=== PATIENT | female | born 1995 | race Caucasian/White ===

== ENCOUNTER 2016-05-25 17:51 | Emergency (ER) | payer SELFPAY ==
[2016-05-25 18:00] VITALS: BP 106/59
--- NOTE | 2016-05-25 18:21 | ER Document Report ---
ED Medical Screen (RME) - General Chief Complaint: Abdominal Pain Stated Complaint: ABDOMINAL PAIN Time seen by provider: 18:19 Mode of Arrival: Ambulatory Information source: Patient Notes: 21-year-old female presents to ED for nausea and vomiting with abdominal pain this morning states she stayed home today and has been relaxing today and now she no longer has abdominal pain or any nausea or vomiting. Patient states she has to have a work note and order to go back to work tomorrow. Last menstrual period May 17 to the . TRAVEL OUTSIDE OF THE [place] IN LAST 30 DAYS: No - Related Data Allergies/Adverse Reactions: No Known Allergies Allergy (Unverified 10/30/15 05:01) Physical Exam - Vital signs Vitals: Temp Pulse Resp BP Pulse Ox 97.9 F 76 16 106/59 L 97 05/25/16 17:58 05/25/16 17:58 05/25/16 17:58 05/25/16 17:58 05/25/16 17:58 Course - Vital Signs Vital signs: Temp Pulse Resp BP Pulse Ox 97.9 F 76 16 106/59 L 97 05/25/16 17:58 05/25/16 17:58 05/25/16 17:58 05/25/16 17:58 05/25/16 17:58
--- NOTE | 2016-05-25 19:41 | ER Document Report ---
ED GI/ - General Chief Complaint: Abdominal Pain Stated Complaint: ABDOMINAL PAIN Mode of Arrival: Ambulatory Information source: Patient Notes: Patient is a 21-year-old female who presents to the ER today for abdominal pain and one episode of vomiting today. Patient states that she is not having these issues any longer and she does not even want to talk about it, that she is just here for a work note. She refuses lab work and would just like to go home now that she feels 100% better. TRAVEL OUTSIDE OF THE [place] IN LAST 30 DAYS: No - Related Data Allergies/Adverse Reactions: No Known Allergies Allergy (Verified 05/25/16 18:21) Past Medical History - General Information source: Patient - Social History Smoking Status: Never Smoker Chew tobacco use (# tins/day): No Frequency of alcohol use: None Drug Abuse: None Family History: Reviewed & Not Pertinent Patient has suicidal ideation: No Patient has homicidal ideation: No Renal/ Medical History: Denies: Hx Peritoneal Dialysis Review of Systems - Review of Systems Constitutional: No symptoms reported EENT: No symptoms reported Cardiovascular: No symptoms reported Respiratory: No symptoms reported Gastrointestinal: See HPI Genitourinary: No symptoms reported Female Genitourinary: No symptoms reported Musculoskeletal: No symptoms reported Skin: No symptoms reported Hematologic/Lymphatic: No symptoms reported Neurological/Psychological: No symptoms reported Physical Exam - Vital signs Vitals: Temp Pulse Resp BP Pulse Ox 97.9 F 76 16 106/59 L 97 05/25/16 17:58 05/25/16 17:58 05/25/16 17:58 05/25/16 17:58 05/25/16 17:58 - Notes Notes: PHYSICAL EXAMINATION: GENERAL: Well-appearing and in no acute distress. HEAD: Atraumatic, normocephalic. EYES: Pupils equal round and reactive to light, extraocular movements intact, sclera anicteric, conjunctiva are normal. NECK: Normal range of motion, supple without lymphadenopathy LUNGS: CTAB and equal. No wheezes rales or rhonchi. HEART: Regular rate and rhythm without murmurs ABDOMEN: Soft, no tenderness. No guarding, no rebound Course - Vital Signs Vital signs: Temp Pulse Resp BP Pulse Ox 97.9 F 76 16 106/59 L 97 05/25/16 17:58 05/25/16 17:58 05/25/16 17:58 05/25/16 17:58 05/25/16 17:58 Discharge - Discharge Clinical Impression: Abdominal pain Qualifiers: Abdominal location: generalized Qualified Code(s): R10.84 - Generalized abdominal pain Nausea and vomiting Qualifiers: Vomiting type: unspecified Vomiting Intractability: non-intractable Qualified Code(s): R11.2 - Nausea with vomiting, unspecified Condition: Stable Disposition: HOME, SELF-CARE Instructions: Abdominal Pain ([facility]), Vomiting ([facility]) Additional Instructions: Return immediately for any new or worsening symptoms. Follow up with primary care provider, call tomorrow to make followup appointment. Forms: Return to Work
== END 2016-05-25 19:56 | disposition home or self-care (01) ==
LOC: ER 17:51
DX: R10.84 Generalized abdominal pain (principal); R11.2 Nausea with vomiting, unspecified
CPT/HCPCS: 99283

== ENCOUNTER 2016-06-08 05:56 | Emergency (ER) | payer SELFPAY ==
[2016-06-08] MEDS ORDERED: PREDNISONE 20 MG TABLET PO ONE (07:36)
[2016-06-08] MEDS ORDERED: ACETAMINOPHEN 325 MG TABLET PO ONE (07:37)
[2016-06-08] MEDS ORDERED: HYDROCODONE/ACETAMINOPHEN 5-325 MG TABLET PO ONE (07:37)
--- NOTE | 2016-06-08 07:37 | ER Document Report ---
ED Pediatric Illness - General Mode of Arrival: Ambulatory Information source: Patient TRAVEL OUTSIDE OF THE [place] IN LAST 30 DAYS: No - HPI Onset: Other - see narrative Onset/Duration: Persistent Quality of pain: Achy Associated symptoms: Other - see narrative <KARLA OMALLEY - Last Filed: 06/08/16 07:42> <HAMLET SAHU - Last Filed: 06/08/16 08:41> - General Chief Complaint: Sore Throat Stated Complaint: SORE THROAT Notes: Patient is a 21-year-old female that presents to the emergency department today with complaints of flu-like symptoms including nasal congestion, nonproductive cough, sore throat, and fevers. Patient states she did not receive a flu shot this year. Patient states her last menstrual period was on 05/27/2016. Patient 's friend at bedside had similar symptoms prior to the patient developing these symptoms. Patient denies vomiting. (KARLA OMALLEY) - Related Data Allergies/Adverse Reactions: No Known Allergies Allergy (Verified 05/25/16 18:21) Past Medical History - General Information source: Patient - Social History Smoking Status: Never Smoker Cigarette use (# per day): No Chew tobacco use (# tins/day): No Smoking Education Provided: No Frequency of alcohol use: Rare Drug Abuse: None Lives with: Friend Family History: Reviewed & Not Pertinent Patient has suicidal ideation: No Patient has homicidal ideation: No - Medical History Medical History: Negative Renal/ Medical History: Denies: Hx Peritoneal Dialysis Surgical Hx: Negative - Immunizations Hx Diphtheria, Pertussis, Tetanus Vaccination: Yes <KARLA OMALLEY - Last Filed: 06/08/16 07:42> - General Information source: Patient - Social History Smoking Status: Never Smoker Cigarette use (# per day): No Chew tobacco use (# tins/day): No Smoking Education Provided: No Frequency of alcohol use: Rare Lives with: Friend - Medical History Medical History: Negative <HAMLET SAHU - Last Filed: 06/08/16 08:41> Review of Systems - Review of Systems Constitutional: Chills, Fever, Malaise EENT: Nose congestion, Nose discharge, Sinus pressure, Throat pain, Difficulty swallowing Cardiovascular: No symptoms reported Respiratory: Cough. denies: Short of breath, Sputum, Wheezing Gastrointestinal: No symptoms reported Genitourinary: No symptoms reported Female Genitourinary: See HPI Musculoskeletal: No symptoms reported Skin: No symptoms reported Hematologic/Lymphatic: No symptoms reported Neurological/Psychological: No symptoms reported -: Yes All other systems reviewed and negative <KARLA OMALLEY - Last Filed: 06/08/16 07:42> - Review of Systems Constitutional: Chills, Fever, Malaise EENT: Nose congestion, Nose discharge, Sinus pressure, Throat pain, Difficulty swallowing Cardiovascular: No symptoms reported Respiratory: Cough. denies: Short of breath, Sputum, Wheezing Gastrointestinal: No symptoms reported Genitourinary: No symptoms reported Female Genitourinary: See HPI - 05-27-16 Musculoskeletal: No symptoms reported Skin: No symptoms reported Hematologic/Lymphatic: No symptoms reported Neurological/Psychological: No symptoms reported <HAMLET SAHU - Last Filed: 06/08/16 08:41> Physical Exam - General General appearance: Alert In distress: Mild - HEENT Head: Normocephalic, Atraumatic Eyes: Normal Pupils: PERRL Ears: Normal External canal: Normal Tympanic membrane: Retracted. No: Injected Sinus: Other - Some nasal and sinus congestion Pharynx: Erythema. No: Exudate, Tonsillar hypertrophy, Uvular edema - Respiratory Respiratory status: No respiratory distress Breath sounds: Nonproductive cough, Rhonchi. No: Wheezing - Cardiovascular Rhythm: Regular Heart sounds: Normal auscultation Murmur: No - Abdominal Inspection: Normal - Back Back: Normal - Extremities General upper extremity: Normal inspection General lower extremity: Normal inspection - Neurological Neuro grossly intact: Yes - Psychological Associated symptoms: Normal affect, Normal mood - Skin Skin Temperature: Warm Skin Moisture: Dry Skin Color: Normal <HAMLET SAHU - Last Filed: 06/08/16 08:41> - Vital signs Vitals: Temp Pulse Resp BP Pulse Ox 98.6 F 117 H 16 104/67 97 06/08/16 05:59 06/08/16 05:59 06/08/16 05:59 06/08/16 05:59 06/08/16 05:59 (KARLA OMALLEY) (HAMLET SAHU) Discharge <KARLA OMALLEY - Last Filed: 06/08/16 07:42> <HAMLET SAHU - Last Filed: 06/08/16 08:41> - Discharge Clinical Impression: Influenza A Condition: Stable Disposition: HOME, SELF-CARE Additional Instructions: Influenza What are conditions that should receive medical attention? The development of difficulty breathing. Lip color changes to blue or purple. Persistent vomiting and unable to keep liquids down with signs of dehydration such as: dizziness when standing, unable to urinate, or if child/infant is crying no tears are noticed. Is less responsive than normal or becomes confused. How do I decrease the spread of flu in my home? Household Cleaning, laundry and waste disposal: Tissues and other disposable items used by the sick person should be thrown away in the trash. Wash your hands after touching these used items. No special waste disposal is required. Keep surfaces (especially bedside tables, bathroom surfaces, and toys for children) clean by wiping them down with a safe household disinfectant according to the directions on the product label. Per CDC advice, most people will not receive testing to confirm flu. Also based on the person's health history and onset of symptoms, not all patients will receive prescriptions for antiviral medications. If you have questions related to this, please ask your healthcare provider. For more information, you can call the Centers for Disease Control and Prevention (CDC) Hotline at 9-785-SNSAzimo This line is available in Malay and Vietnamese, 24 hours a day, 7 days a week. Or www.[employer].com or www.cdc.gov Flu-Like Illness Home Instructions: The influenza virus infection can cause a wide rage of symptoms, including: Fever, cough, sore throat, body aches, headaches, chills, fatigue, with some patients reporting diarrhea and vomiting Like seasonal influenza A, H1N1 ("swine flu")in humans can vary in severity from mild to severe Severe illness with pneumonia, respiratory failure and even is possible Certain groups might be more likely to develop a severe illness from H1N1 infection. Sometimes bacterial infections may occur at the same time as or after infection with influenza viruses and lead to pneumonias, ear infections, or sinus infections. How Flu Spreads The main way that influenza viruses spread is through respiratory droplets of coughs and sneezes. This can happen when someone with the infection coughs or sneezes and the particles fly through the air and land on other people and surfaces. If the person covers their mouth and nose with their hand but does not wash their hands immediately, then these germs are passed onto the next object that they touch. People with Influenza A who are cared for at home should: Check with their doctor about any special care that they might need if they are or have a health condition such as diabetes, heart disease, asthma or emphysema. Also, limit caregiver to one (if possible). women or those with chronic health conditions should not take care of the flu patient unless necessary. Check with their doctor about whether or not medications are needed that may lessen the symptoms of the flu. Stay at home until 24 hours fever free without the use of fever reducing medication. Get plenty of rest and avoid other healthy people in your home. Drink plenty of clear liquids to keep from getting dehydrated. Take medications like Tylenol (Acetaminophen), Advil/Motrin/Nuprin ( Ibuprofen) or Aleve (Naproxen) for fevers and aches. All children under the age of 18 years of age should not take aspirin or products containing aspirin (e.g. Pepto Bismol), as this can cause a rare serious illness called Levy Syndrome. Over the counter medications for flu and colds may help, but it is very important to follow the package directions. Remember that the medicine may help the symptoms, but it will not help prevent others from getting sick if they are around you. Cover coughs and sneezes using your bent arm. Clean hands with soap and water or an alcohol-based hand rub often, especially after using tissues to cough or sneeze. Encourage hand washing frequently for all people living in the home! The sick person should not have visitors other than caregivers. Encourage concerned loved ones to call instead of visit. Avoid close contact with others-do not go to work or school while sick. YOU HAVE INFLUENZA TYPE A. DRINK PLENTY OF FLUIDS. TAKE TYLENOL EVERY FOUR HOURS FOR FEVER AND PAIN. GET PLENTY OF REST. REST YOUR VOICE. TRY OTC COUGH AND COLD MEDICATIONS FOR COUGH, CONGESTION AND SORE THROAT. FOLLOW UP WITH A LOCAL MEDICAL DOCTOR IF NOT IMPROVING OVER THE NEXT SEVERAL DAYS. RETURN TO THE EMERGENCY ROOM IF ANY NEW OR WORSENING SYMPTOMS. Forms: Return to Work Scribe Attestation: 06/08/16 08:41 I personally performed the services described in the documentation, reviewed and edited the documentation which was dictated to the scribe in my presence, and it accurately records my words and actions. (HAMLET SAHU) Scribe Documentation - Scribe Written by Bella:: Bella Bolanos, [id number] 06/08/2016 acting as scribe for :: Ravi <KARLA OMALLEY - Last Filed: 06/08/16 07:42>
[2016-06-08 08:51] VITALS: BP 102/66
== END 2016-06-08 08:40 | disposition home or self-care (01) ==
LOC: ER 05:56
DX: J09.X2 Influenza due to identified novel influenza A virus with other respiratory manifestations (principal); J02.9 Acute pharyngitis, unspecified; R09.81 Nasal congestion; R50.9 Fever, unspecified; R53.81 Other malaise
CPT/HCPCS: 99283; 87804; J7512